=== PATIENT | male | born 1980 | race Caucasian/White ===

== ENCOUNTER 2017-07-27 19:29 | Emergency (ER) | payer OTHER ==
[~2017-07-27 19:29] MED LIST: AMOX-559 PO; AZIT-1 PO; BENZ100C4 PO; FLUT16SP19 NS; GUAI120L3 PO; HYDR-4309 PO
--- NOTE | 2017-07-27 19:32 | ER Report ---
History and Physical Time Seen By MD: 19:31 HPI/ROS CHIEF COMPLAINT: Right upper quadrant pain HISTORY OF PRESENT ILLNESS: 36-year-old male presents ambulatory to the ER complaining of right upper quadrant pain, onset around 3 PM. Patient notes the pain radiates to his back. He notes mild increase with deep inspiration. He thinks the pain also gets worse with eating. He called his doctor, Dr. Doss. He advised him to come to the ER for further evaluation. Patient notes no fever or cough. Patient's had no chest injury. She notes no diarrhea or constipation. He denies nausea or vomiting. He denies fever or chills. REVIEW OF SYSTEMS: Respiratory: No cough, no dyspnea. Cardiovascular: No chest pain, no palpitations. Gastrointestinal: As above Musculoskeletal: No back pain. Allergies: Coded Allergies: morphine (Verified Allergy, Intermediate, hives, 07/27/17) Home Meds Discontinued Scripts Fluticasone Prop 50 Mcg Ns (FLONASE 50 MCG NS) 16 Gm Nora.susp, 1-2 SPRAY NS QDAY, #1 BOT 0 Refills Prov:PIERRE AGUILAR DNP, [facility]- 06/14/17 Amoxicillin/Pot Clav 875-125 Mg Tab (AUGMENTIN 875-125 TABLET) 1 Each Tablet, 1 TAB PO Q12H for 10 Days, #20 TAB 0 Refills Prov:PIERRE AGUILAR DNP, FNP- 06/14/17 Reviewed Nurses Notes: Yes Old Medical Records Reviewed: Yes Hx Smoking: No Smoking Status: Never Smoker Hx Substance Use Disorder: No Hx Alcohol Use: Yes (SOCIAL) Constitutional Vital Sign - Last 24 Hours 07/27/17 07/27/17 07/27/17 07/27/17 19:41 19:44 19:59 20:00 Temp 98.1 Pulse 74 71 72 Resp 19 14 20 B/P (MAP) 144/86 135/86 (102) Pulse Ox 97 97 96 O2 Delivery Room Air 07/27/17 07/27/17 07/27/17 07/27/17 20:29 20:30 20:35 20:40 Pulse 73 75 84 B/P (MAP) 116/72 (87) Pulse Ox 94 93 94 07/27/17 20:45 Pulse ??? Pulse Ox 93 Physical Exam General Appearance: The patient is alert, has no immediate need for airway protection and no current signs of toxicity. Mild distress, vital signs stable , afebrile, pulse ox normal Eyes: Pupils equal and round no injection. Respiratory: Chest is non tender, lungs are clear to auscultation. No chest wall tenderness Cardiac: regular rate and rhythm Gastrointestinal: Abdomen is soft, mild right upper quadrant, no Donaldson sign, no CVA tenderness no masses, bowel sounds normal. Musculoskeletal: Neck: Neck is supple and non tender. No lymphadenopathy Extremities have full range of motion and are non tender. Skin: No rashes or lesions. DIFFERENTIAL DIAGNOSIS: After history and physical exam differential diagnosis was considered for abdominal pain including but not limited to appendicitis, cholecystitis, gastritis, gastroenteritis, food poisoning, viral syndrome, pleurisy, costochondritis, urinary colic and urinary tract infection. Medical Decision Making Data Points Result Diagram: 07/27/17200007/27/172000 Laboratory Hematology Test 07/27/17 19:35 07/27/17 20:01 Urine Color Straw Urine Clarity Clear Urine pH 6.0 pH (4.8-9.5) Urine Specific [place] 1.008 Urine Protein Negative mg/dL (NEGATIVE) Urine Glucose (UA) Negative mg/dL (NEGATIVE) Urine Ketones Negative mg/dL (NEGATIVE) Urine Blood Negative (NEGATIVE) Urine Nitrite Negative (NEGATIVE) Urine Bilirubin Negative (NEGATIVE) Urine Urobilinogen Negative mg/dL (0.2-1.9) Urine Leukocyte Esterase Negative (NEGATIVE) Urine RBC None /HPF (0-2/HPF) Urine WBC None /HPF (0-5/HPF) Urine Squamous Epithelial Cells None /LPF (</=FEW) Urine Bacteria Negative /HPF (NONE-FEW) Urine Mucus None /HPF (NONE-FEW) Red Blood Count 5.04 M/uL (4.00-5.60) Mean Corpuscular Volume 90.0 fL (80.0-96.0) Mean Corpuscular Hemoglobin 32.0 pg (26.0-33.0) Mean Corpuscular Hemoglobin Concent 35.6 g/dL (32.0-36.0) Red Cell Distribution Width 13.0 % (11.5-14.5) Mean Platelet Volume 7.6 fL (7.2-11.1) Neutrophils (%) (Auto) 74.3 % (39.4-72.5) Lymphocytes (%) (Auto) 18.1 % (17.6-49.6) Monocytes (%) (Auto) 6.7 % (4.1-12.4) Eosinophils (%) (Auto) 0.4 % (0.4-6.7) Basophils (%) (Auto) 0.5 % (0.3-1.4) Nucleated RBC Relative Count (auto) 0.0 /100WBC Neutrophils # (Auto) 8.8 K/uL (2.0-7.4) Lymphocytes # (Auto) 2.1 K/uL (1.3-3.6) Monocytes # (Auto) 0.8 K/uL (0.3-1.0) Eosinophils # (Auto) 0.0 K/uL (0.0-0.5) Basophils # (Auto) 0.1 K/uL (0.0-0.1) Nucleated RBC Absolute Count (auto) 0.00 K/uL Sodium Level 139 mmol/L (137-145) Potassium Level 3.7 mmol/L (3.5-5.0) Chloride Level 98 mmol/L (98-107) Carbon Dioxide Level 26 mmol/L (22-30) Blood Urea Nitrogen 15 mg/dl (9-21) Creatinine 1.20 mg/dl (0.66-1.25) Glomerular Filtration Rate Calc > 60.0 Random Glucose 108 mg/dl (75-110) Calcium Level 10.2 mg/dl (8.4-10.2) Total Bilirubin 0.8 mg/dl (0.2-1.3) Aspartate Amino Transf (AST/SGOT) 27 U/L (0-35) Alanine Aminotransferase (ALT/SGPT) 41 U/L (0-56) Alkaline Phosphatase 70 U/L (0-126) Total Protein 8.3 gm/dl (6.3-8.2) Albumin 4.6 g/dl (3.5-5.0) Amylase Level 75 U/L (0-110) Lipase 80 U/L (23-300) Chemistry Test 07/27/17 19:35 07/27/17 20:01 Urine Color Straw Urine Clarity Clear Urine pH 6.0 pH (4.8-9.5) Urine Specific [place] 1.008 Urine Protein Negative mg/dL (NEGATIVE) Urine Glucose (UA) Negative mg/dL (NEGATIVE) Urine Ketones Negative mg/dL (NEGATIVE) Urine Blood Negative (NEGATIVE) Urine Nitrite Negative (NEGATIVE) Urine Bilirubin Negative (NEGATIVE) Urine Urobilinogen Negative mg/dL (0.2-1.9) Urine Leukocyte Esterase Negative (NEGATIVE) Urine RBC None /HPF (0-2/HPF) Urine WBC None /HPF (0-5/HPF) Urine Squamous Epithelial Cells None /LPF (</=FEW) Urine Bacteria Negative /HPF (NONE-FEW) Urine Mucus None /HPF (NONE-FEW) White Blood Count 11.8 k/uL (4.5-11.0) Red Blood Count 5.04 M/uL (4.00-5.60) Hemoglobin 16.1 g/dL (14.0-18.0) Hematocrit 45.3 % (42.0-52.0) Mean Corpuscular Volume 90.0 fL (80.0-96.0) Mean Corpuscular Hemoglobin 32.0 pg (26.0-33.0) Mean Corpuscular Hemoglobin Concent 35.6 g/dL (32.0-36.0) Red Cell Distribution Width 13.0 % (11.5-14.5) Platelet Count 220 K/uL (150-450) Mean Platelet Volume 7.6 fL (7.2-11.1) Neutrophils (%) (Auto) 74.3 % (39.4-72.5) Lymphocytes (%) (Auto) 18.1 % (17.6-49.6) Monocytes (%) (Auto) 6.7 % (4.1-12.4) Eosinophils (%) (Auto) 0.4 % (0.4-6.7) Basophils (%) (Auto) 0.5 % (0.3-1.4) Nucleated RBC Relative Count (auto) 0.0 /100WBC Neutrophils # (Auto) 8.8 K/uL (2.0-7.4) Lymphocytes # (Auto) 2.1 K/uL (1.3-3.6) Monocytes # (Auto) 0.8 K/uL (0.3-1.0) Eosinophils # (Auto) 0.0 K/uL (0.0-0.5) Basophils # (Auto) 0.1 K/uL (0.0-0.1) Nucleated RBC Absolute Count (auto) 0.00 K/uL Glomerular Filtration Rate Calc > 60.0 Calcium Level 10.2 mg/dl (8.4-10.2) Total Bilirubin 0.8 mg/dl (0.2-1.3) Aspartate Amino Transf (AST/SGOT) 27 U/L (0-35) Alanine Aminotransferase (ALT/SGPT) 41 U/L (0-56) Alkaline Phosphatase 70 U/L (0-126) Total Protein 8.3 gm/dl (6.3-8.2) Albumin 4.6 g/dl (3.5-5.0) Amylase Level 75 U/L (0-110) Lipase 80 U/L (23-300) Urinalysis Test 07/27/17 19:35 Urine Color Straw Urine Clarity Clear Urine pH 6.0 pH (4.8-9.5) Urine Specific [place] 1.008 Urine Protein Negative mg/dL (NEGATIVE) Urine Glucose (UA) Negative mg/dL (NEGATIVE) Urine Ketones Negative mg/dL (NEGATIVE) Urine Blood Negative (NEGATIVE) Urine Nitrite Negative (NEGATIVE) Urine Bilirubin Negative (NEGATIVE) Urine Urobilinogen Negative mg/dL (0.2-1.9) Urine Leukocyte Esterase Negative (NEGATIVE) Urine RBC None /HPF (0-2/HPF) Urine WBC None /HPF (0-5/HPF) Urine Squamous Epithelial Cells None /LPF (</=FEW) Urine Bacteria Negative /HPF (NONE-FEW) Urine Mucus None /HPF (NONE-FEW) EKG/Imaging Imaging X-ray: Two-view chest x-ray was obtained. I viewed the images myself on the PACS system. My interpretation of the images is: No infiltrate, no effusion, normal mediastinum. The radiologist interpretation had no clinically significant variation from this interpretation. ED Course/Re-evaluation ED Course Patient was admitted to an examination room. H&P was done. The dental diagnoses was considered. On clinical examination. Patient has right upper quadrant tenderness. He has no associated GI symptoms. He has no associated respiratory symptoms. A chest x-ray is unremarkable. Patient has an IV established and diagnostic bloods are sent off. His LFTs, lipase, amylase are all normal. His white blood cell counts only mildly elevated 11.4. Patient's given Toradol 30 motor grams IV and notes improvement of his pain. Patient's discharged home with conservative treatment plan of ibuprofen 600 mg 3 times daily. Patient advised to follow-up with primary care or Dr Bryant if unimproved in 3-5 days. Decision to Disposition Date: Jul 27, 2017 Decision to Disposition Time: 20:43 Depart Departure Latest Vital Signs Vital Signs Date Time Temp Pulse Resp B/P (MAP) Pulse Ox O2 Delivery O2 Flow Rate FiO2 07/27/17 20:45 ??? 93 07/27/17 20:30 116/72 (87) 07/27/17 19:59 20 07/27/17 19:41 98.1 Room Air Impression: Primary Impression: Pleurisy Condition: Improved Disposition: HOME OR SELF-CARE Referrals: PIERRE AGUILAR DNP, [employer] REPRESENTATIVE-[employer] (PCP) Patient Instructions: Pleurisy (ED) Additional Instructions: Take ibuprofen 200 mg 3-4 tablets 3 times a day with food Apply heating pad to the affected area Follow-up with primary care or Dr. Doss if unimproved in 3-5 days Return to the ER for any worsening LINNEA CROW DO Jul 27, 2017 19:32
[2017-07-27] MEDS ORDERED: KETOROLAC 30 MG/ML VIAL IVP ONE (20:00)
[2017-07-27 20:09] LABS: PLATELET COUNT, AUTOMATED 220 K/uL (150-450)
[2017-07-27 20:30] VITALS: BP 116/72
--- NOTE | 2017-07-27 20:32 | RADIOLOGY IMAGING REPORT ---
[place] [facility] [place]: Andi Lerner : 1980 MR: [id number] V: [id number] EXAM DATE: ORDERING PHYSICIAN: LINNEA CROW TECHNOLOGIST: Location: [facility] Patient: Andi Lerner : 1980 Visit/Account:[id number] Date of Sevice: 07/27/2017 2 VIEWS CHEST INDICATION: Difficulty breathing with right-sided abdomen pain. COMPARISON: None available FINDINGS: Cardiomediastinal silhouette and pulmonary vessels within normal limits. There is no focal infiltrate or lobar consolidation. There is no pneumothorax or pleural effusion. No nodule. Upper abdomen is unremarkable. No acute bony abnormality. IMPRESSION: 1. No acute cardiopulmonary process. Report Dictated By: Jimenez Coburn at 07/27/2017 8:26 PM Report E-Signed By: Jimenez Coburn at 07/27/2017 8:28 PM WSN:[id number]
== END 2017-07-27 20:49 | disposition home or self-care (01) ==
LOC: ER 20:10
DX: R09.1 Pleurisy (principal)
CPT/HCPCS: 71046; 81001; 82150; 83690; 85025; 96374; 99284; J1885; 82040; 82247; 82310; 82374; 82435; 82565; 82947; 84075; 84132; 84155; 84295; 84450; 84460; 84520

== ENCOUNTER 2017-07-28 03:19 | Inpatient (IN) | payer OTHER ==
[~2017-07-28] VITALS: Ht 172.7 cm; Wt 97.7 kg
[2017-07-28] MEDS ORDERED: NS(*) 0.9% 1000 ML BAG 1,000 ML IV ONE (03:34)
--- NOTE | 2017-07-28 03:34 | ER Report ---
History and Physical Time Seen By MD: 03:27 Hx. of Stated Complaint: patient states he owke up at around 0200, with worsing pain in his right upper quadrant, radiates to right flank and shoulder. HPI/ROS CHIEF COMPLAINT: Right upper quadrant pain HISTORY OF PRESENT ILLNESS: 36-year-old male returns with worsening right upper quadrant pain radiating to his back. His shoulder. Patient notes increased pain with deep inspiration. She was seen earlier in the ER with right upper quadrant pain. His diagnostic evaluation was negative. He had a normal chest x -ray. Start stoma conservative treatment plan. Patient did good on the Toradol until about 2 AM when he woke up with worsening pain. Upon further questioning after figuring out. The diagnosis. Patient admits he had some left leg pain after an aggressive weight training workout on legs last week. He thought he strained his left calf muscle, but I suspect he had a DVT that moved to his lungs at 3 PM yesterday. REVIEW OF SYSTEMS: Respiratory: No cough, no dyspnea. Cardiovascular: As above Gastrointestinal: As above Musculoskeletal: No back pain. Allergies: Coded Allergies: morphine (Verified Allergy, Intermediate, hives, 07/28/17) Home Meds Discontinued Scripts Fluticasone Prop 50 Mcg Ns (FLONASE 50 MCG NS) 16 Gm [place].susp, 1-2 SPRAY NS QDAY, #1 BOT 0 Refills Prov:PIERRE AGUILAR DNP, FNP-BC 06/14/17 Amoxicillin/Pot Clav 875-125 Mg Tab (AUGMENTIN 875-125 TABLET) 1 Each Tablet, 1 TAB PO Q12H for 10 Days, #20 TAB 0 Refills Prov:PIERRE AGUILAR DNP, FNP- 06/14/17 Past Medical/Surgical History Unremarkable Reviewed Nurses Notes: Yes Old Medical Records Reviewed: Yes Hx Smoking: No Smoking Status: Never Smoker Hx Substance Use Disorder: No Hx Alcohol Use: Yes (SOCIAL) Constitutional Vital Sign - Last 24 Hours 07/28/17 07/28/17 07/28/17 07/28/17 03:23 03:30 03:34 04:04 Temp 98.3 Pulse 82 82 78 Resp 12 B/P (MAP) 148/96 136/87 (103) Pulse Ox 95 96 90 07/28/17 07/28/17 07/28/17 07/28/17 04:19 04:30 04:34 05:00 Pulse 85 ??? B/P (MAP) 136/90 (105) 135/92 (106) Pulse Ox 86 91 07/28/17 07/28/17 05:04 05:19 Pulse 75 76 Pulse Ox 92 93 Physical Exam General Appearance: The patient is alert, has no immediate need for airway protection and no current signs of toxicity. Vital signs stable, afebrile, pulse ox normal, moderate distress ENT: Pupils equal and round no injection. Oropharynx without redness or exudate , mucous members are moist Respiratory: Chest is non tender, lungs are clear to auscultation. No chest wall tenderness Cardiac: regular rate and rhythm Gastrointestinal: Abdomen is soft and non tender, no masses, bowel sounds normal. Musculoskeletal: Neck: Neck is supple and non tender. No lymphadenopathy, no Extremities have full range of motion and are non tender. Skin: No rashes or lesions. DIFFERENTIAL DIAGNOSIS: After history and physical exam differential diagnosis was considered for abdominal pain including but not limited to appendicitis, cholecystitis, gastritis and urinary tract infection. Additionally,chest pain including but not limited to myocardial ischemia, pericarditis pulmonary embolus , chest wall pain, pleural inflammation and pulmonary infectious causes. Medical Decision Making Data Points Result Diagram: 07/28/17 0400 07/28/17 0400 Laboratory Hematology Test 07/28/17 04:00 Red Blood Count 5.19 M/uL (4.00-5.60) Mean Corpuscular Volume 90.4 fL (80.0-96.0) Mean Corpuscular Hemoglobin 31.8 pg (26.0-33.0) Mean Corpuscular Hemoglobin Concent 35.2 g/dL (32.0-36.0) Red Cell Distribution Width 12.7 % (11.5-14.5) Mean Platelet Volume 7.9 fL (7.2-11.1) Neutrophils (%) (Auto) 70.4 % (39.4-72.5) Lymphocytes (%) (Auto) 20.0 % (17.6-49.6) Monocytes (%) (Auto) 8.7 % (4.1-12.4) Eosinophils (%) (Auto) 0.6 % (0.4-6.7) Basophils (%) (Auto) 0.3 % (0.3-1.4) Nucleated RBC Relative Count (auto) 0.0 /100WBC Neutrophils # (Auto) 7.6 K/uL (2.0-7.4) Lymphocytes # (Auto) 2.1 K/uL (1.3-3.6) Monocytes # (Auto) 0.9 K/uL (0.3-1.0) Eosinophils # (Auto) 0.1 K/uL (0.0-0.5) Basophils # (Auto) 0.0 K/uL (0.0-0.1) Nucleated RBC Absolute Count (auto) 0.01 K/uL D-Dimer Quantitative (PE/DVT) 1.22 ug/ml (0-0.50) Sodium Level 140 mmol/L (137-145) Potassium Level 3.5 mmol/L (3.5-5.0) Chloride Level 99 mmol/L (98-107) Carbon Dioxide Level 26 mmol/L (22-30) Blood Urea Nitrogen 13 mg/dl (9-21) Creatinine 1.30 mg/dl (0.66-1.25) Glomerular Filtration Rate Calc > 60.0 Random Glucose 122 mg/dl (75-110) Calcium Level 10.1 mg/dl (8.4-10.2) Total Bilirubin 1.2 mg/dl (0.2-1.3) Aspartate Amino Transf (AST/SGOT) 25 U/L (0-35) Alanine Aminotransferase (ALT/SGPT) 37 U/L (0-56) Alkaline Phosphatase 69 U/L (0-126) Troponin I < 0.012 ng/ml Total Protein 8.1 gm/dl (6.3-8.2) Albumin 4.6 g/dl (3.5-5.0) Amylase Level 45 U/L (0-110) Lipase 77 U/L (23-300) Chemistry Test 07/28/17 04:00 White Blood Count 10.7 k/uL (4.5-11.0) Red Blood Count 5.19 M/uL (4.00-5.60) Hemoglobin 16.5 g/dL (14.0-18.0) Hematocrit 46.9 % (42.0-52.0) Mean Corpuscular Volume 90.4 fL (80.0-96.0) Mean Corpuscular Hemoglobin 31.8 pg (26.0-33.0) Mean Corpuscular Hemoglobin Concent 35.2 g/dL (32.0-36.0) Red Cell Distribution Width 12.7 % (11.5-14.5) Platelet Count 223 K/uL (150-450) Mean Platelet Volume 7.9 fL (7.2-11.1) Neutrophils (%) (Auto) 70.4 % (39.4-72.5) Lymphocytes (%) (Auto) 20.0 % (17.6-49.6) Monocytes (%) (Auto) 8.7 % (4.1-12.4) Eosinophils (%) (Auto) 0.6 % (0.4-6.7) Basophils (%) (Auto) 0.3 % (0.3-1.4) Nucleated RBC Relative Count (auto) 0.0 /100WBC Neutrophils # (Auto) 7.6 K/uL (2.0-7.4) Lymphocytes # (Auto) 2.1 K/uL (1.3-3.6) Monocytes # (Auto) 0.9 K/uL (0.3-1.0) Eosinophils # (Auto) 0.1 K/uL (0.0-0.5) Basophils # (Auto) 0.0 K/uL (0.0-0.1) Nucleated RBC Absolute Count (auto) 0.01 K/uL D-Dimer Quantitative (PE/DVT) 1.22 ug/ml (0-0.50) Glomerular Filtration Rate Calc > 60.0 Calcium Level 10.1 mg/dl (8.4-10.2) Total Bilirubin 1.2 mg/dl (0.2-1.3) Aspartate Amino Transf (AST/SGOT) 25 U/L (0-35) Alanine Aminotransferase (ALT/SGPT) 37 U/L (0-56) Alkaline Phosphatase 69 U/L (0-126) Troponin I < 0.012 ng/ml Total Protein 8.1 gm/dl (6.3-8.2) Albumin 4.6 g/dl (3.5-5.0) Amylase Level 45 U/L (0-110) Lipase 77 U/L (23-300) Coagulation Test 07/28/17 04:00 D-Dimer Quantitative (PE/DVT) 1.22 ug/ml EKG/Imaging EKG Interpretation 12 lead EK 351 Rhythm: Normal sinus rhythm with sinus arrhythmia Vesper: normal QRS: normal ST segments: normal, no evidence of ischemia or dysrhythmia Imaging Results: CT scan of the CTA pulmonary angiogram was obtained. The results of the study are EXAMINATION: CTA of the chest with IV contrast History: Right-sided chest pain, elevated d-dimer. TECHNIQUE: Pulmonary embolus protocol - Thin-slice axial imaging of the chest was performed during maximal pulmonary arterial opacification with intravenous nonionic iodinated contrast. 3D coronal slab MIPs and 2D reconstructions in the coronal and sagittal planes were performed to aid in pulmonary embolus detection. Access Specialist images have been stored on PACS. One of the following dose optimization techniques was utilized in the performance of this exam: Automated exposure control; adjustment of the mA and/or kV according to the patient's size; or use of an iterative reconstruction technique. Specific details can be referenced in the facility's radiology CT exam operational policy. Contrast: 75 mL of IV Isovue-370 COMPARISON STUDIES: none. FINDINGS: Please note that this exam is optimized for assessment of the pulmonary arteries and is not intended as a diagnostic study of the thoracic aorta, coronary arteries or venous structures. Angiographic Findings: Pulmonary arteries: Pulmonary emboli to the right lower lobe and left upper lobe. There is patchy density in the right posterior lung base which may represent pulmonary infarct. Other vasculature: negative. Additional non-angiographic findings: Lungs / Pleura: negative. Mediastinum / Lindsay: negative. Heart / Pericardium: negative. Musculoskeletal / Body wall: negative Lymph node assessment: negative Upper abdomen: negative Lower neck:Negative IMPRESSION: Study is positive for pulmonary emboli to the right lower lobe and left upper lobe. There is patchy density in the right posterior lung base which may represent early changes of pulmonary infarct. The study was read by the radiologist. I viewed the images myself on the PACS system. Results: CT scan of the abdomen and pelvis with IV contrast was obtained. The results of the study are [normal]. The study was read by the radiologist. I viewed the images myself on the PACS system.EXAMINATION: CT abdomen with IV contrast CT pelvis with IV contrast History: Right-sided chest pain, elevated d-dimer. TECHNIQUE: Spiral scan was through the abdomen and pelvis during injection of nonionic iodinated intravenous contrast. One of the following dose optimization techniques was utilized in the performance of this exam: Automated exposure control; adjustment of the mA and/or kV according to the patient's size; or use of an iterative reconstruction technique. Specific details can be referenced in the facility's radiology CT exam operational policy. Contrast: 75 mL of IV Isovue-370. COMPARISON STUDIES: none. FINDINGS: Lower chest: Mild patchy atelectasis or infiltrate in the right lung base. Mild atelectasis in the left lung base. Liver / biliary: negative Pancreas: negative Spleen: negative Adrenal glands: negative Kidneys / retroperitoneum: negative Pelvic structures: negative Bowel / peritoneum / mesenteries: negative Vessels: negative Musculoskeletal / Body wall: negative Lymph node assessment: negative IMPRESSION: 1. No evidence of acute abdominal or pelvic pathology. 2. Mild patchy atelectasis or infiltrate in the right posterior lung base. ED Course/Re-evaluation Clinical Indication for ER IV: Hydration, IV Access ED Course Patient was admitted to an examination room. H&P was done. The differential diagnoses was considered. On clinical examination. Patient has worsening right -sided chest pain. He notes radiation to his right shoulder. Patient notes no fever. Patient returns. We'll expand the differential. Laboratory studies for d-dimer, coronary twice a day and EKG are performed, which was unremarkable Patient's d-dimer returns elevated. A CTA pulmonary angiogram is performed. We will do a runoff CT of the abdomen and pelvis to rule out pathology there. Patient's CT scan is positive for bilateral pulmonary embolisms greater on the right than the left, there is evidence of a early pulmonary infarction with hazy infiltrate in the right lower lobe. Patient was given fentanyl 100 g on his arrival. After returning from CT scan, he required Dilaudid 1 mg for additional pain relief. I discussed the option of going home on Xarelto. But due to his early pulmonary infarction and need for pain control. Patient also was offered the option of admission. He thinks it would like to be admitted for adequate pain control. 07/28/2017 5:43:51 am case discussed with Delon Lawrence hospitalist on-call, who accepts patient for admission. Decision to Disposition Date: Jul 28, 2017 Decision to Disposition Time: 05:39 Depart Departure Latest Vital Signs Vital Signs Date Time Temp Pulse Resp B/P (MAP) Pulse Ox O2 Delivery O2 Flow Rate FiO2 07/28/17 05:19 76 93 07/28/17 05:00 135/92 (106) 07/28/17 03:23 98.3 12 Impression: Primary Impression: Pulmonary embolism Additional Impression: Pulmonary infarction Condition: Improved Disposition: Admitted from ER Referrals: PIERRE AGUILAR DNP, [employer] DES[employer]ER-BC (PCP) New Scripts No Active Prescriptions or Reported Meds Problem Qualifiers Primary Impression: Pulmonary embolism Pulmonary embolism type: other Chronicity: acute Acute cor pulmonale presence: without acute cor pulmonale Qualified Codes: I26.99 - Other pulmonary embolism without acute cor pulmonale LINNEA CROW DO Jul 28, 2017 03:34
[2017-07-28] MEDS ORDERED: ONDANSETRON 4 MG/2 ML VIAL IVP ONE (03:35)
[2017-07-28] MEDS ORDERED: ASPIRIN 81 MG CHEW PO ONE (03:35)
[2017-07-28] MEDS ORDERED: fentaNYL CITR 100 MCG/2 ML AMP IVP ONE (03:35)
[2017-07-28 04:15] LABS: PLATELET COUNT, AUTOMATED 223 K/uL (150-450)
[2017-07-28] MEDS ORDERED: IOPAMIDOL 76% 75 ML INFUS BTL 75 ML ONE (04:40)
[2017-07-28] MEDS ORDERED: NS 0.9% 150 ML BAG 150 ML ONE (04:41)
--- NOTE | 2017-07-28 05:26 | RADIOLOGY IMAGING REPORT ---
FACILITY: [facility] PATIENT NAME: Andi Lerner : 1980 MR: [id number] V: [id number] EXAM DATE: ORDERING PHYSICIAN: LINNEA CROW [place]CHN[place] [facility] [place] And[place] : 1980 Visit/Account:[id number] Date of Sevice: 07/28/2017 EXAMINATION: CT abdomen with IV contrast CT pelvis with IV contrast History: Right-sided chest pain, elevated d-dimer. TECHNIQUE: Spiral scan was through the abdomen and pelvis during injection of nonionic iodinated in travenous contrast. One of the following dose optimization techniques was utilized in the performance of this exam: Automated exposure control; adjustment of the mA and/or kV according to the patient's size; or use of an iterative reconstruction technique. Specific details can be referenced in the [facility]'s radiology CT exam operational policy. Contrast: 75 mL of IV Isovue-370. COMPARISON STUDIES: none. FINDINGS: Lower chest: Mild patchy atelectasis or infiltrate in the right lung base. Mild atelectasis in the le ft lung base. Liver / biliary: negative Pancreas: negative Spleen: negative Adrenal glands: negative Kidneys / retroperitoneum: negative Pelvic structures: negative Bowel / peritoneum / mesenteries: negative Vessels: negative Musculoskeletal / Body wall: negative Lymph node assessment: negative IMPRESSION: 1. No evidence of acute abdominal or pelvic pathology. 2. Mild patchy atelectasis or infiltrate in the right posterior lung base. Report Dictated By: Moreno Sandoval MD at 07/28/2017 5:17 AM Report E-Signed By: Moreno Sandoval MD at 07/28/2017 5:21 AM WSN:[id number]
--- NOTE | 2017-07-28 05:26 | EKG ---
FACILITY: [facility] PATIENT NAME: MARIANNE WEST : [id number] MR: [id number] V: [id number] EXAM DATE: ORDERING PHYSICIAN: LINNEA CROW TECHNOLOGIST: EMANI Test Reason : R SIDED CP Blood Pressure : / mmHG Vent. Rate : 071 BPM Atrial Rate : 071 BPM P-R Int : 164 ms QRS Dur : 088 ms QT Int : 390 ms P-R-T Axes : 052 072 049 degrees QTc Int : 423 ms Sinus rhythm Nonspecific ST elevation diffusely - suspect early repolarization, but cannot exclude other causes Decreased R wave progression anteriorly No previous ECGs available Confirmed by TREASURE DENSIE ([id number]) on 07/28/2017 5:48:55 AM Referred By: Confirmed By:TREASURE DENISE
--- NOTE | 2017-07-28 05:38 | RADIOLOGY IMAGING REPORT ---
FACILITY: [facility] PATIENT NAME: Andi Lerner : 1980 MR: [id number] V: [id number] EXAM DATE: ORDERING PHYSICIAN: LINNEA CROW TECHNOLOGIST: [place] [facility] [place] Andi Lerner : 1980 Visit/Account:[id number] Date of Sevice: 07/28/2017 EXAMINATION: CTA of the chest with IV contrast History: Right-sided chest pain, elevated d-dimer. TECHNIQUE: Pulmonary embolus protocol - Thin-slice axial imaging of the chest was performed during maximal pulmonary arterial opacification with intravenous nonionic iodinated contrast. 3D coronal sla b MIPs and 2D reconstructions in the coronal and sagittal planes were performed to aid in pulmonary e mbolus detection. Superintendent Meter Tests images have been stored on PACS. One of the following dose optimizat ion techniques was utilized in the performance of this exam: Automated exposure control; adjustment o f the mA and/or kV according to the patient's size; or use of an iterative reconstruction technique. Specific details can be referenced in the facility's radiology CT exam operational policy. Contrast: 75 mL of IV Isovue-370 COMPARISON STUDIES: none. FINDINGS: Please note that this exam is optimized for assessment of the pulmonary arteries and is not intended as a diagnostic study of the thoracic aorta, coronary arteries or venous structures. Angiographic Findings: Pulmonary arteries: Pulmonary emboli to the right lower lobe and left upper lobe. There is patchy den sity in the right posterior lung base which may represent pulmonary infarct. Other vasculature: negative. Additional non-angiographic findings: Lungs / Pleura: negative. Mediastinum / Lindsay: negative. Heart / Pericardium: negative. Musculoskeletal / Body wall: negative Lymph node assessment: negative Upper abdomen: negative Lower neck:Negative IMPRESSION: Study is positive for pulmonary emboli to the right lower lobe and left upper lobe. There is patchy d ensity in the right posterior lung base which may represent early changes of pulmonary infarct. Results were called to LINNEA CROW at 0530 hours. . Report Dictated By: Moreno Sandoval MD at 07/28/2017 5:26 AM Report E-Signed By: Moreno Sandoval MD at 07/28/2017 5:33 AM WSN:[id number]
[2017-07-28] MEDS ORDERED: HYDROmorphone* 1 MG/ML 1 MG/ML ML IVP ONE (05:40)
[2017-07-28 06:39] VITALS: BP 130/89
[2017-07-28] MEDS ORDERED: fentaNYL CITR 100 MCG/2 ML AMP IVP PRN (07:55)
[2017-07-28] MEDS ORDERED: INFLUENZA VIRUS VAC 0.5 ML SYR IM ONLY ONE (07:55)
[2017-07-28] MEDS ORDERED: NS(*) 0.9% 1000 ML BAG 1,000 ML IV PRN (07:55)
[2017-07-28] MEDS ORDERED: ENOXAPARIN 100 MG/ML SYR SC SCH (08:00)
--- NOTE | 2017-07-28 08:15 | History & Physical ---
History of Present Illness Chief Complaint right sided chest pain History of Present Illness The patient presented to the emergency department with right sided upper abdominal pain which extends into the right shoulder. He was diagnosed with pulmonary embolism with infarct. He has no history of DVT or PE in the past, or any family history of clotting disorders. He denies any swelling to lower extremities. However, he does recall about a week ago he had pain to his left calf which he thought was a pulled muscle from a workout. History Home Meds Discontinued Scripts Fluticasone Prop 50 Mcg Ns (FLONASE 50 MCG NS) 16 Gm [place].susp, 1-2 SPRAY NS QDAY, #1 BOT 0 Refills Prov:PIERRE AGUILAR DNP, [employer] F[employer]ER-BC 06/14/17 Amoxicillin/Pot Clav 875-125 Mg Tab (AUGMENTIN 875-125 TABLET) 1 Each Tablet, 1 TAB PO Q12H for 10 Days, #20 TAB 0 Refills Prov:PIERRE AGUILAR DNP, [employer] F[employer]ER-BC 06/14/17 Allergies: Coded Allergies: morphine (Verified Allergy, Intermediate, hives, 07/28/17) Hx Smoking: No Smoking Status: Never Smoker Caffeine Intake: Coffee Caffeine/Cups Per Day: 6 cups/day Hx Alcohol Use: Yes Hx Substance Use Disorder: No Review of Systems All Systems Reviewed/Normal: Yes, Except as Noted Cardiovascular: Chest Pain Respiratory: Shortness of Breath Exam Vital Signs Vital Signs Date Time Temp Pulse Resp B/P (MAP) Pulse Ox O2 Delivery O2 Flow Rate FiO2 07/28/17 06:40 91 Room Air 07/28/17 06:39 98.0 65 16 130/89 (103) General Appearance: Alert, Awake, No Acute Distress, Afebrile Neuro: No Gross deficits Cardiovascular: Regular Rate and Rhythm Respiratory: No Respiratory Distress, Clear to Auscultation GI: Abd Soft and Non-Tender Extremities: Soft and Non Tender, No Edema Psych: Alert & Oriented X3, Appropriate Mood & Affect Medical Decision Making Data Points Result Diagram: 07/28/1739907/28/17399 Item Value Date Time Creatinine 1.30 mg/dl H 07/28/170 Random Glucose 122 mg/dl H 07/28/170 Troponin I < 0.012 ng/ml 07/28/17399 D-Dimer Quantitative (PE/DVT) 1.22 ug/ml H 07/28/17 0400 Assessment and Plan Problems: (1) Pulmonary embolism Status: Acute Assessment & Plan: He presented with chest pain and shortness of breath. CTA of his chest showed pulmonary embolism with infarct. He will be started on Lovenox and will switch him to oral anticoagulation tomorrow. We will also order a hypercoagulation panel to evaluate the cause of the PE. (2) Elevated serum creatinine Status: Acute Assessment & Plan: Creatinine this morning is 1.3. He will receive IV hydration. We will recheck his labs in the morning. Venous Thromboembolism Antithrombotics Is Pt On Any Antithrombotics?: Yes Exam Sepsis Risk: No Definite Risk Problem Qualifiers (1) Pulmonary embolism: Pulmonary embolism type: other Chronicity: acute Acute cor pulmonale presence: without acute cor pulmonale Qualified Codes: I26.99 - Other pulmonary embolism without acute cor pulmonale MONSERRAT GARCIA Jul 28, 2017 08:15
[2017-07-28 09:01] LABS: INR 1.01
[2017-07-28 09:39] VITALS: Ht 172.7 cm; Wt 97.7 kg
[2017-07-28] MEDS ORDERED: APAP/HYDROCODONE 325/5 TAB PO PRN (09:40)
[2017-07-28] MEDS: HYDROmorphone HCL 2 MG/ML SDV IVP PRN ×3 (10:07→20:36)
[2017-07-28 11:41] VITALS: BP 119/79
--- NOTE | 2017-07-28 12:25 | RADIOLOGY IMAGING REPORT ---
FACILITY: [facility] [place] PATIENT NAME: Andi Lerner : 1980 MR: [id number] V: [id number] EXAM DATE: ORDERING PHYSICIAN: MONSERRAT GARCIA [place]CHN[place]: [place] [facility] [place] [place] : 1980 Visit/Account:[id number] Date of Sevice: 07/28/2017 Exam type: VENOUS DOPP LOWER BILAT EXTREM History: PE Comparison: None. Findings: The lower extremity veins were imaged bilaterally including the common femoral veins, greater sapheno us veins, superficial femoral veins, popliteal veins, posterior tibial vein, anterior tibial veins, p eroneal veins revealing no evidence intraluminal thrombi. The veins were compressible and demonstrat ed augmentation. IMPRESSION: 1. No sonographic evidence of DVT involving the lower extremity veins Report Dictated By: Maribell Hughes MD at 07/28/2017 12:18 PM Report E-Signed By: Maribell Hughes MD at 07/28/2017 12:20 PM WSN:[email or web address]
[2017-07-28] MEDS ORDERED: CELECOXIB 200 MG CAP PO ONE (13:50)
[2017-07-28 14:12] VITALS: BP 124/80
[2017-07-28 15:41] VITALS: BP 124/83
[2017-07-28] MEDS: ACETAMINOPHEN 500 MG TAB PO PRN ×2 (15:49→22:53)
[2017-07-28] MEDS: oxyCODONE HCL 5 MG CAP PO PRN ×2 (15:49→22:52)
[2017-07-28 19:40] VITALS: BP 116/73
[2017-07-28] MEDS: RIVAROXABAN 10 MG TAB PO SCH (20:32)
[2017-07-28 22:54] VITALS: BP 116/70
[2017-07-29 05:06] VITALS: BP 123/77
[2017-07-29] MEDS: oxyCODONE HCL 5 MG CAP PO PRN ×2 (05:06→11:33)
[2017-07-29] MEDS: ACETAMINOPHEN 500 MG TAB PO PRN ×2 (05:06→11:33)
[2017-07-29 05:55] LABS: PLATELET COUNT, AUTOMATED 216 K/uL (150-450)
[2017-07-29 07:23] VITALS: BP 126/87
[2017-07-29] MEDS ORDERED: CELECOXIB 200 MG CAP PO SCH (09:00)
[2017-07-29] MEDS: RIVAROXABAN 10 MG TAB PO SCH (09:07)
[2017-07-29] MEDS ORDERED: RIV10 PO (10:26)
[2017-07-29] MEDS ORDERED: CELE200C7 PO (10:26)
[2017-07-29] MEDS ORDERED: ACET-2043 PO (10:26)
[2017-07-29] MEDS ORDERED: OXYC5TAB38 PO (10:26)
--- NOTE | 2017-07-29 10:32 | Hospitalist Depart ---
Discharge Summary Reason for Hosp/Final Diag: (1) Pulmonary embolism Status: Acute Hospital Course & Plan: He presented with chest pain and shortness of breath. CTA of his chest showed bilateral pulmonary embolism with infarct. He was started on Lovenox and was switched to Xarelto. A hypercoagulation panel was ordered to evaluate the cause of the PE. He will follow up with his PCP for management of coagulation, as well as Dr. Maldonado to evaluate the hypercoagulation studies. He has not required oxygen during his admission. (2) Elevated serum creatinine Status: Acute Hospital Course & Plan: Creatinine this morning has decreased to 1.1. Departure Latest Vital Signs Vital Signs 07/29/17 07/29/17 07:23 07:25 Temp 97.9 Pulse 70 Resp 16 B/P (MAP) 126/87 (100) Pulse Ox 92 O2 Delivery Room Air Weight (Pounds): 215 Weight (Ounces): 6.0 Result Diagram: 07/29/1750907/29/17509 Condition: Improved Discharge: Home, Self Care Discharge Instructions Home Meds Active Scripts Oxycodone Hcl (OXYCODONE HCL) 5 Mg Tablet, 5-10 MG PO Q6H Y for PAIN, #30 TAB Prov:MONSERRAT GARCIA 07/29/17 Discontinued Scripts Fluticasone Prop 50 Mcg Ns (FLONASE 50 MCG NS) 16 Gm [place].susp, 1-2 SPRAY NS QDAY, #1 BOT 0 Refills Prov:PIERRE AGUILAR DNP, FNP-PAGE 06/14/17 Amoxicillin/Pot Clav 875-125 Mg Tab (AUGMENTIN 875-125 TABLET) 1 Each Tablet, 1 TAB PO Q12H for 10 Days, #20 TAB 0 Refills Prov:PIERRE AGUILAR DNP, FNP-BC 06/14/17 Diet: Regular Activity: As Tolerated Copies to: PIERRE AGUILAR DNP, FNP-BC; YULIA MALDONADO MD Venous Thromboembolism Antithrombotics Is Pt On Any Antithrombotics?: Yes Problem Qualifiers (1) Pulmonary embolism: Pulmonary embolism type: other Chronicity: acute Acute cor pulmonale presence: without acute cor pulmonale Qualified Codes: I26.99 - Other pulmonary embolism without acute cor pulmonale MONSERRAT GARCIA Jul 29, 2017 10:32
== END 2017-07-29 11:54 | disposition home or self-care (01) | DRG 176 ==
LOC: ER 03:31 → MED 06:26
PROVIDERS: ADMIT Internal Medicine; ATTEND Internal Medicine
DX: I26.99 Other pulmonary embolism without acute cor pulmonale (principal); Z88.5 Allergy status to narcotic agent
CPT/HCPCS: 36415; 71275; 74177; 82040; 82150; 82247; 82310; 82374; 82435; 82565; 82947; 83690; 84075; 84132; 84155; 84295; 84450; 84460; 84484; 84520; 85025; 85049; 85379; 85384; 85610; 85730; 93005; 93970; 99285; J1170; J1650; J2405; J3010; J7030; Q9967

== ENCOUNTER 2017-09-08 08:53 | Outpatient (RCR) | payer OTHER ==
[2017-07-28 09:39] VITALS: Wt 100.2 kg
[2017-08-05 09:19] LABS: PLATELET COUNT, AUTOMATED 368 K/uL (150-450)
[~2017-09-08 08:53] MED LIST changes: +ACET-2043 PO; +CELE200C7 PO; +OXYC5TAB38 PO; +RIV10 PO; +RIVA20TA PO
[2017-09-08 09:04] VITALS: BP 125/78
[2017-09-08 10:29] LABS: PLATELET COUNT, AUTOMATED 273 K/uL (150-450)
--- NOTE | 2017-09-08 19:56 | ONCOLOGY HISTORY AND PHYSICAL ---
CHIEF COMPLAINT/REASON FOR VISIT Mr. Lerner is a pleasant 36-year-old gentleman with newly diagnosed DVT/PE, unprovoked, in July 2017, now on Xarelto. HISTORY OF PRESENT ILLNESS Mr. Lerner presents to discuss his unprovoked DVT/PE. Approximately one month prior to onset of symptoms he did have a long flight to [facility]. This included several approximately four-hour flights. He did not have any symptoms after that time. Approximately one month later while doing some weight training , he did note some pain in the calves. He subsequently developed shortness of breath and workup revealed the bilateral PE that appeared to be an embolic event. Thankfully he is recovering fully on the Xarelto. He had an appropriate hypercoagulable panel ordered by his primary care provider which was completely negative. There was an elevated dilute Andrew viper venom test , but this is a false positive from the Xarelto. Confirmatory tests including the hexagonal phase testing as well as the various specific antibodies were all negative. I do plan to add a homocysteine and factor VIII level which can be hereditary as well. Labs were drawn today. I would like to get an updated CBC as well as a D-dimer. We had an extensive discussion today about the diagnosis, treatment options and natural history of embolic events like this. PAST MEDICAL HISTORY DVT PE, unprovoked, July 27 018. SOCIAL HISTORY Patient is and has a 1-1/2-year-old son. 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 He has approximately six alcoholic beverages per week. Nonsmoker, no tobacco use of any kind. FAMILY HISTORY Maternal grandmother with lung cancer and liver cancer. Paternal grandfather with colon cancer. MEDICATIONS 1. Xarelto 15 mg twice a day, which will convert to 20 mg daily soon. 2. Celebrex 200 mg twice a day. 3. Tylenol as needed. 4. Oxycodone as needed. He is not needing those frequently, and the Celebrex is typically adequate. REVIEW OF SYSTEMS CONSTITUTIONAL: No fevers, chills, weight change. HEENT: No headaches, vision changes, hearing changes. CARDIOVASCULAR: No chest pain, shortness of breath on exertion in excess, or other concerns there. GASTROINTESTINAL: No nausea or vomiting. GENITOURINARY: No dysuria or hematuria. MUSCULOSKELETAL: No weakness or joint pain. PSYCHIATRIC: No anxiety or depression. SKIN: No concerning rashes or lesions. HEMATOLOGIC: No bleeding or bruising in excess. IMMUNOLOGIC: No concerning lumps or bumps. NEUROLOGIC: No numbness or other deficits. The remainder of the 14-point review of systems is otherwise negative. PHYSICAL EXAMINATION VITAL SIGNS: Blood pressure is 125/78, pulse 76, respiratory rate 16, temperature 96.8 Fahrenheit, oxygen saturation 96% on room air. Weight 100.2 kg. Pain 0/10, fatigue 2/10. GENERAL: In stable condition, resting comfortably in the chair. HEENT: Normocephalic, atraumatic. CARDIOVASCULAR: Deferred. LUNGS: Clear. ABDOMEN: Soft, nontender. EXTREMITIES: No clubbing, cyanosis or edema. Remainder of full physical exam deferred today to amount of time spent in counseling and coordination of care. IMPRESSION AND PLAN Mr. Lerner is a pleasant 36-year-old gentleman with the following: Unprovoked deep venous thrombosis/pulmonary embolus, July 2017. His hypercoagulable panel is negative. I believe the elevated DRVVT is a false positive from the Xarelto. His confirmatory tests are all negative. I recommend six months of anticoagulation followed by transition to lifelong baby aspirin. We discussed the pros and cons of this in detail. With the unprovoked blood clot he is at an increased risk of events in the future, but I believe we have excellent data that show that risks with lifelong anticoagulation outweigh the benefits in this scenario. We can reduce the risks of recurrent DVT/PE modestly with the baby aspirin without greatly increasing the risk of bleeding. He is active with rugby and I have advised him to avoid contact sports until he is on a baby aspirin alone. With that he can still bruise slightly easier. I answered all of his many questions today. I will see him back in approximately five months when we make the transition to this. I have labs pending today including a homocysteine and a factor VIII level. We will repeat the lupus antibody test, after he has been off of the Xarelto for at least a week, to confirm that this was a false positive due to that drug. Billing: New patient level 4. Total time 50 minutes, counseling time 30. MTDD
== END 2017-09-08 13:58 | disposition home or self-care (01) ==
LOC: ONC 08:53
PROVIDERS: ATTEND Internal Medicine
DX: I26.99 Other pulmonary embolism without acute cor pulmonale (principal)
CPT/HCPCS: 36415; 81240; 81241; 83090; 85025; 85240; 85300; 85302; 85305; 85379; 85597; 85610; 85613; 85670; 85730; 85732; 86146; 86147; 99202

== ENCOUNTER 2018-01-31 09:29 | Outpatient (RCR) | payer OTHER ==
[2017-07-28 09:39] VITALS: Wt 100.7 kg
[2018-01-24 09:09] VITALS: BP 119/83
[~2018-01-31 09:29] MED LIST changes: -HYDR-4309 PO; +HYDR-653 PO
[2018-01-31 09:30] VITALS: BP 126/73
--- NOTE | 2018-02-01 05:38 | [facility] ONCOLOGY NOTE ---
EVENT DATE: January 31, 2018 CHIEF COMPLAINT/REASON FOR VISIT Mr. Lerner is a very pleasant 37-year-old gentleman with a history of an unprovoked DVT/PE in July 2017, here after six months of Xarelto. HISTORY OF PRESENT ILLNESS Mr. Lerner returns. Approximately one month prior to symptoms, he had a long flight to the [facility]. This included several four-hour flights. He did not have any symptoms immediately after that. However, approximately one month later while doing some weight training, he had some pain in the calves. He subsequently developed shortness of breath and revealed bilateral PE that appeared to be an embolic event. He has recovered fully on six months of Xarelto. He had an appropriate hypercoagulable panel, which was completely negative. There was an elevated dilute Andrew viper venom test, but this is a false positive from Xarelto. Confirmatory tests included hexagonal phase testing as well as various specific antibodies were all negative for this. He had a slightly elevated factor VIII, which is an inflammatory marker and may be improved with diet, exercise, and weight loss. ten percent of patients have a high factor VIII. This can be an independent risk factor. We had an extensive discussion about what to do at this point. There are no data to suggest that we need lifelong anticoagulation in this setting, and I feel it is appropriate to stop. However, given the unprovoked nature as well as the high factor VIII, I would recommend a baby aspirin lifelong, as long as the risks do not outweigh the benefit. PAST MEDICAL HISTORY DVT/PE, unprovoked, July 27, 2017. SOCIAL HISTORY Patient is and has a 1-1/2-year-old son. 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 He has approximately six alcoholic beverages per week. Nonsmoker. No tobacco use of any kind. FAMILY HISTORY Maternal grandmother with lung cancer and liver cancer. Paternal grandfather with colon cancer. MEDICATIONS 1. Xarelto 20 mg daily. 2. Celebrex 200 mg twice a day. 3. Tylenol as needed. 4. Oxycodone as needed. He is not needing those frequently, and the Celebrex is typically adequate. REVIEW OF SYSTEMS CONSTITUTIONAL: No fevers, chills, or weight change. HEENT: No headaches, vision changes, or hearing changes. CARDIOVASCULAR: No chest pain, shortness of breath on exertion in excess, or other concerns there. GASTROINTESTINAL: No nausea or vomiting. GENITOURINARY: No dysuria or hematuria. MUSCULOSKELETAL: No weakness or joint pain. PSYCHIATRIC: No anxiety or depression. SKIN: No concerning rashes or lesions. HEMATOLOGIC: No bleeding or bruising in excess. IMMUNOLOGIC: No concerning lumps or bumps. NEUROLOGIC: No numbness or other deficits. The remainder of the 14-point review of systems is otherwise negative. PHYSICAL EXAMINATION VITAL SIGNS: Blood pressure is 126/73, pulse 70, respiratory rate 16, temperature 96.5 Fahrenheit, oxygen saturation 93% on room air. Weight 100.7 kg. Pain 0/10, fatigue 0/10. GENERAL: In stable condition, resting comfortably in the chair. HEENT: Normocephalic, atraumatic. EXTREMITIES: No edema. SKIN: No concerning findings. PSYCHIATRIC: Normal mood and affect. Full physical exam deferred today due to amount of time spent on counseling and coordination of care. IMPRESSION/PLAN Mr. Lerner is a very pleasant gentleman with the following: Unprovoked deep venous thrombosis/pulmonary embolus in July 2017. He had a long plane flight, but it was several weeks prior to the event. He was doing weight training at the time of development of calf discomfort. He does have an elevated factor VIII, which is a marker of inflammation and can be an independent risk factor. Given these findings, I think that switching from Xarelto to baby aspirin would be appropriate. I believe that the elevated DRVVT is a false positive from Xarelto, as all the confirmatory tests were negative. We discussed the pros and cons of the various options at this point, including active surveillance versus aspirin alone versus continued anticoagulation. I believe the data are clear that lifelong anticoagulation is not required in this setting. I do not believe we need any additional testing for lupus anticoagulant, as the confirmatory tests were negative, including hexagonal phase testing. Answered all of his questions today. He does understand that even with the switch to aspirin, he is at a slightly higher risk for blood clots in the future. I do recommend some mild weight loss. BILLING Level 4. Total time 30 minutes, counseling time 15. MTDD
[2018-02-22] MEDS ORDERED: RIVA15TA PO (16:52)
[2018-02-22] MEDS ORDERED: RIVA20TA PO (16:52)
[2018-03-25] MEDS ORDERED: GUAI120L3 PO (13:21)
[2018-03-25] MEDS ORDERED: AMOX-559 PO (13:21)
[2018-03-25] MEDS ORDERED: FLUT16SP19 NS (13:21)
== END 2018-04-24 ==
LOC: ONC 09:29
PROVIDERS: ATTEND Internal Medicine
DX: I26.99 Other pulmonary embolism without acute cor pulmonale (principal); Z79.01 Long term (current) use of anticoagulants
CPT/HCPCS: 36415; 85379; 99212

== ENCOUNTER → 2018-02-22 | Outpatient (CLI) | payer OTHER ==
[2017-07-28 09:39] VITALS: BMI 32.7
[~2018-02-22] MED LIST changes: +RIVA15TA PO
--- NOTE | 2018-02-22 16:27 | RADIOLOGY IMAGING REPORT ---
[place] [facility] [place]: Andi Lerner : 1980 MR: [id number] V: [id number] EXAM DATE: ORDERING PHYSICIAN: PIERRE AGUILAR TECHNOLOGIST: Location: [facility] Patient: Andi Lerner : 1980 Visit/Account:[id number] Date of Sevice: 02/22/2018 Venous Doppler ultrasound right lower extremity Indication: Right calf pain.. Comparison: 07/28/2017. Findings: Duplex Doppler and color flow imaging was performed. The common femoral, femoral, and popl iteal veins are all patent and compressible with normal Doppler wave forms. There are normal respons es to augmentation. The posterior tibial and peroneal veins are patent in the calf. The proximal greater saphenous vein i s also normal. The distal greater saphenous vein in the medial aspect of the lower leg does show intr aluminal thrombus with poor compressibility and blood flow. Subcutaneous tissues are unremarkable. IMPRESSION: 1. No evidence of deep venous thrombosis of the right lower extremity. 2. Superficial thrombophlebitis of the greater saphenous vein in the right lower leg. I called report to PIERRE AGUILAR at 02/22/2018 4:21 PM. Report Dictated By: Jimenez Coburn at 02/22/2018 4:11 PM Report E-Signed By: Jimenez Coburn at 02/22/2018 4:22 PM WSN:[id number]
== END ==
LOC: RAD 13:51
PROVIDERS: ATTEND Nurse Practitioner Primary Care
DX: I82.811 Embolism and thrombosis of superficial veins of right lower extremity (principal); M79.661 Pain in right lower leg
CPT/HCPCS: 36415; 85379

== ENCOUNTER 2018-05-09 08:59 | Outpatient (RCR) | payer OTHER ==
[2017-07-28 09:39] VITALS: Wt 100.4 kg
[2018-05-09 09:03] VITALS: BP 115/80
--- NOTE | 2018-05-09 13:34 | [facility] ONCOLOGY NOTE ---
EVENT DATE: May 09, 2018 CHIEF COMPLAINT/REASON FOR VISIT Mr. Lerner is a pleasant 37-year old gentleman with a history of an unprovoked DVT/PE in July 2017, as well as a provoked superficial thrombosis off of therapy in February 2018. HISTORY OF PRESENT ILLNESS Mr. Lerner returns. In approximately June 2017, he had a long flight to the [facility] that included four hour flights. He did not have any symptoms immediately after that. However, in July 2017, while doing some weight training, he had some pain in the calves. He subsequently developed shortness of breath, which revealed bilateral PE that appeared to be an embolic event. He finished six months of Xarelto without issue. He had an appropriate hypercoagulable panel given his age, which was completely negative. There was an elevated dilute Andrew viper venom test, but this is likely a false positive from Xarelto. We did confirmatory tests including hexagonal phase testing as well as various specific antibodies and all of these were negative. He had a slightly elevated factor VIII, which is likely an inflammatory marker but 10% of patients can have a high factor III that could be an independent risk factor. At our last visit in January, we discussed switching to aspirin but Andi admits that he did not do this. He now says that he would like to finish three months of Xarelto for a superficial thrombophlebitis provoked by weight training and then transition to an aspirin. We discussed how this is "a peter area" and that it would be reasonable for long-term anticoagulation. However, it is not a definite need for that given his history. After discussion, he would like to utilize the aspirin option. He understands that if he has any other events in the future we will recommend a definite anticoagulation. PAST MEDICAL HISTORY DVT/PE, unprovoked, July 27, 2017. SOCIAL HISTORY Patient is and has a 1-1/2-year-old son. 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 Nonsmoker. No tobacco use of any kind. FAMILY HISTORY Maternal grandmother with lung cancer and liver cancer. Paternal grandfather with colon cancer. MEDICATIONS 1. Xarelto 20 mg daily. 2. Celebrex 200 mg twice a day. 3. Tylenol as needed. 4. Oxycodone as needed. He is not needing those frequently, and the Celebrex is typically adequate. REVIEW OF SYSTEMS CONSTITUTIONAL: No fevers, chills, or weight change. HEENT: No headaches, vision changes, or hearing changes. CARDIOVASCULAR: No chest pain, shortness of breath on exertion in excess, or other concerns there. GASTROINTESTINAL: No nausea or vomiting. GENITOURINARY: No dysuria or hematuria. MUSCULOSKELETAL: No weakness or joint pain. PSYCHIATRIC: No anxiety or depression. SKIN: No concerning rashes or lesions. HEMATOLOGIC: No bleeding or bruising in excess. IMMUNOLOGIC: No concerning lumps or bumps. NEUROLOGIC: No numbness or other deficits. The remainder of the 14-point review of systems is otherwise negative. PHYSICAL EXAMINATION VITAL SIGNS: Blood pressure is 115/80, pulse 76, respiratory rate 16, temperature 97.5 Fahrenheit, oxygen saturation 94% on room air. Weight 100.4 kg and stable. Pain 0/10, fatigue 0/10. GENERAL: In stable condition, resting comfortably in the chair. HEENT: Normocephalic, atraumatic. CARDIOVASCULAR: Deferred. EXTREMITIES: No clubbing, cyanosis or edema today. PSYCHIATRIC: Normal mood and affect. Full physical exam deferred today due to amount of time spent on counseling and coordination of care. IMPRESSION/REPORT/PLAN Mr. Lerner is a pleasant 37-year old gentleman with the followin. Unprovoked deep venous thrombosis/pulmonary embolus in July 2017, having completed six months of Xarelto. 2. Superficial thrombophlebitis in the calves, provoked by exercise. He is back on Xarelto for three months for this superficial event. I believe that the elevated DRVVT is a false positive for Xarelto as all of the confirmatory tests were negative. He does have a mild elevation of factor VIII, which is likely an independent risk factor for him. With these findings, a definite anticoagulation is not required unless he has a second DVT event. Would recommend transition to an aspirin though, which he did not do in the fall after completion of three months of Xarelto. Thus, in summary, he will finish the Xarelto in approximately one month and then transition to an aspirin. We would like to see him annually. I answered all of his questions today. BILLING Return level 4. Total time 30 minutes, counseling time 20. MTDD
== END 2018-06-08 07:11 | disposition home or self-care (01) ==
LOC: ONC 08:59
PROVIDERS: ATTEND Internal Medicine
DX: I26.99 Other pulmonary embolism without acute cor pulmonale (principal); Z79.01 Long term (current) use of anticoagulants
CPT/HCPCS: 99212

== ENCOUNTER → 2018-07-22 | Outpatient (REF) ==
[2017-07-28 09:39] VITALS: BMI 32.7
[2018-07-22 08:50] LABS: LDL CHOLESTEROL 189 mg/dl
== END ==
DX: Z02.9 Encounter for administrative examinations, unspecified (principal)

== ENCOUNTER → 2018-11-11 | Outpatient (CLI) | payer OTHER ==
[2017-07-28 09:39] VITALS: BMI 32.7
--- NOTE | 2018-11-11 13:40 | RADIOLOGY IMAGING REPORT ---
FACILITY: [facility] PATIENT NAME: Andi Lerner : 1980 MR: [id number] V: [id number] EXAM DATE: ORDERING PHYSICIAN: MARIO ALBERTO RIVERA TECHNOLOGIST: Location: [facility] [place] Patient: Andi Lerner : 1980 Visit/Account:[id number] Date of Sevice: 11/11/2018 Exam type: ANKLE 3 VIEW MIN LEFT History: left ankle pain, twisted last Wednesday Comparison: None. Findings: There is mild soft tissue swelling along the medial aspect of the left ankle. No evidence of acute f racture or dislocation seen. The ankle mortise appears intact IMPRESSION: 1. Mild soft tissue swelling over the medial aspect left ankle although no gross evidence of acute f racture or dislocation Report Dictated By: Maribell Hughes MD at 11/11/2018 1:30 PM Report E-Signed By: Maribell Hughes MD at 11/11/2018 1:31 PM WSN:[email or web address]
== END ==
LOC: RAD 09:23
PROVIDERS: ATTEND Nurse Practitioner Primary Care
DX: M25.572 Pain in left ankle and joints of left foot (principal); M79.89 Other specified soft tissue disorders